=== PATIENT | female | born 1955 | race Caucasian/White ===

== ENCOUNTER 2023-06-23 19:03 | Emergency (ER) | payer MEDICARE ==
[~2023-06-23] VITALS: Ht 165.1 cm; Wt 85.0 kg
[2023-06-23 19:16] VITALS: BP 143/83
[2023-06-23 19:39] LABS: URINE BILIRUBIN - DIPSTICK Negative (NEGATIVE); URINE BLOOD DIPSTICK Small (NEGATIVE); URINE COLOR Yellow; URINE GLUCOSE - DIPSTICK Negative (NEGATIVE); URINE KETONE Negative (NEGATIVE); URINE LEUK ESTERASE Small (NEGATIVE); URINE NITRITE - DIPSTICK Negative (Negative); URINE PROTEIN - DIPSTICK Negative (NEG-TRACE); URINE SPECIFIC GRAVITY 1.015; URINE UROBILINOGEN - DIPSTICK 0.2 E.U./dL (0.2)
[2023-06-23 19:44] LABS: URINE BACTERIA FEW hpf; URINE SQUAMOUS EPITHELIAL CELL RARE EPI/hpf (0-FEW)
[2023-06-23] MEDS ORDERED: CEPHALEXIN MONOHYDRATE 500 MG/CAP PO ONE (19:45)
[2023-06-23] MEDS ORDERED: LASIX 20 MG TAB20 MG PO (19:46)
[2023-06-23] MEDS ORDERED: PAROXETINE30 MG PO (19:46)
[2023-06-23] MEDS ORDERED: LOSARTAN POTASS25 MG PO (19:46)
[2023-06-23] MEDS ORDERED: OZEMPIC 8 MG/3M1 INJ SC (19:47)
[2023-06-23] MEDS ORDERED: POT CHLORIDE20 ME2 PO (19:48)
[2023-06-23] MEDS ORDERED: KEFLEX500 MG PO (19:52)
[2023-06-23] MEDS ORDERED: PHENAZOPYRIDIN100 M1 PO (19:54)
[2023-06-23] MEDS ORDERED: PHENAZOPYRIDINE HCL 100 MG/TAB PO ONE (19:55)
[2023-06-23 19:58] VITALS: BP 143/83
== END 2023-06-23 20:05 | disposition home or self-care (01) ==
LOC: ED 19:03
PROVIDERS: Nurse Practitioner
DX: N39.0 Urinary tract infection, site not specified (principal); B96.20 Unspecified Escherichia coli [E. coli] as the cause of diseases classified elsewhere